=== PATIENT | female | born 1975 | race Two or more races ===

== ENCOUNTER 2016-08-17 16:46 | Observation (INO) | payer OTHER ==
[~2016-08-17] VITALS: Ht 165.1 cm; Wt 113.4 kg
[2016-08-17] MEDS ORDERED: SODIUM CHLORIDE 0.9% 1,000 ML IVB ONE (17:27)
[2016-08-17] MEDS ORDERED: ONDANSETRON HCL 4 MG/2 ML VIAL IV ONE (17:30)
[2016-08-17 17:37] LABS: Basophils # (auto) 0 uL; Basophils % (auto) 0.2 % (0.0-2.0); Eosinophils # (auto) 0 uL; Hematocrit 45.4 % (36.0-46.0); Hemoglobin 15.1 g/dL (12.2-16.2); Lymphocytes # (auto) 1.8 uL; Lymphocytes % (auto) 11.8 % (10.0-50.0); Mean Corpuscular Hemoglobin 29.5 pg (28.0-32.0); Mean Corpuscular Hgb Conc. 33.2 g/dL (32.0-36.0); Mean Corpuscular Volume 88.6 fL (80.0-100.0); Mean Platelet Volume 8.1 fL (7.4-10.4); Monocytes # (auto) 0.4 uL; Monocytes % (auto) 2.4 % (0.0-12.0); Neutrophils # (auto) 12.9 uL; Neutrophils % (auto) 85.6 % (37.0-80.0); Platelet Count (auto) 380 10^3/uL (140-450); White Blood Cell 15.1 10^3/uL (4.4-10.8)
[2016-08-17 17:57] LABS: Albumin 3.3 g/dL (3.4-5.0); BUN/Creatinine Ratio 17.5; Bilirubin, Total 0.5 mg/dL (0.2-1.0); Calcium 8.5 mg/dL (8.5-10.1); Magnesium 2.1 mg/dL (1.6-2.6); Potassium 4.2 mmol/L (3.5-5.1); Total Protein 7.5 g/dL (6.4-8.2)
[2016-08-17 18:21] LABS: Amylase 23 U/L (25-115)
[2016-08-17 18:25] LABS: INR 1.01 (0.9-1.15); Partial Thromboplastin Time 28.5 sec (22.64-33.71); Prothrombin Time 10.9 sec (9.37-12.3)
[2016-08-17] MEDS ORDERED: KETOROLAC TROMETH 30 MG/ML 1ML VIAL IV ONE (20:15)
[2016-08-17 20:27] LABS: Urine RBC None Seen /hpf (0 - 4)
[2016-08-17 20:48] LABS: Urine Bilirubin Negative (Negative); Urine Blood Negative /uL (Negative); Urine Color Yellow (Yellow); Urine Nitrite Negative (Negative); Urine Squamous Epithelial Cell FEW /hpf (<5); Urine Urobilinogen Normal (Negative); Urine pH 5.5 (5.0-8.0)
[2016-08-17 21:07] LABS: Urine Glucose 3+ mg/dL (Normal); Urine Ketone 2+ (Negative)
[2016-08-17] MEDS ORDERED: cefTRIAXone 1GM/50ML D5W 50 ML IV ONE (22:15)
[2016-08-17 22:49] VITALS: BP 116/75
== END 2016-08-17 23:01 | disposition home or self-care (01) | DRG 392 ==
LOC: EDBD 16:46 → ER 17:00 → OVERFLOW 17:28 → ER 23:01
PROVIDERS: ADMIT Family Medicine; ATTEND Family Medicine
DX: K52.9 Noninfective gastroenteritis and colitis, unspecified (principal); N83.202 Unspecified ovarian cyst, left side; J45.909 Unspecified asthma, uncomplicated; I10 Essential (primary) hypertension; E11.9 Type 2 diabetes mellitus without complications; Z82.49 Family history of ischemic heart disease and other diseases of the circulatory system; Z83.3 Family history of diabetes mellitus; Z90.49 Acquired absence of other specified parts of digestive tract
CPT/HCPCS: 36415; 71010; 74176; 80053; 81001; 82150; 82962; 83690; 83735; 85025; 85610; 85730; 96361; 96365; 96375; 99285; G0378; J0696; J1885; J2405; J7030